=== PATIENT | female | born 1935 | race Caucasian/White ===

== ENCOUNTER 2018-12-25 06:15 | Day surgery (SDC) | payer OTHER ==
[~2018-12-25 06:15] MED LIST: B-12250 MCG; FENOFIBRATE160 MG; METFORMIN HCL500 MG; OMEPRAZOLE20 M1; SIMVASTATIN40 MG; SYNTHROID50 MCG
== END 2018-12-25 16:55 | disposition home or self-care (01) ==
LOC: CIR.AMB 06:15
DX: D05.11 Intraductal carcinoma in situ of right breast (principal)

== ENCOUNTER 2019-01-22 04:50 | Day surgery (SDC) | payer OTHER ==
[~2019-01-22] VITALS: Ht 157.5 cm; Wt 54.4 kg
[~2019-01-22 04:50] MED LIST changes: +ZOCOR40 MG PO
== END 2019-01-23 08:00 | disposition home or self-care (01) ==
LOC: CIR.AMB 04:50 → O/R 09:25 → CIR.AMB 09:25 → SURG 09:25 → O/R 15:40 → SURG 15:40 → CIR.AMB 01-23 08:00 → SURG 01-23 11:52
DX: D05.11 Intraductal carcinoma in situ of right breast (principal)

== ENCOUNTER 2019-03-06 15:12 | Emergency (ER) | payer OTHER ==
[~2019-03-06] VITALS: Ht 154.9 cm; Wt 54.4 kg
[2019-03-06] MEDS ORDERED: PROTONIX20 MG PO (15:50)
== END 2019-03-06 17:36 | disposition home or self-care (01) ==
LOC: ER 15:12
DX: R07.89 Other chest pain (principal)

== ENCOUNTER 2022-01-22 22:03 | Emergency (ER) | payer OTHER ==
[~2022-01-22] VITALS: Ht 154.9 cm; Wt 54.4 kg
[~2022-01-22 22:03] MED LIST changes: +PROTONIX20 MG PO
[2022-01-23] MEDS ORDERED: PEPCID AC20 MG PO (07:02)
[2022-01-23] MEDS ORDERED: CARAFATE1 GM PO (07:02)
== END 2022-01-23 07:44 | disposition home or self-care (01) ==
LOC: ER 22:03
DX: K29.70 Gastritis, unspecified, without bleeding (principal)

== ENCOUNTER 2023-02-12 11:37 | Emergency (ER) | payer OTHER ==
[~2023-02-12] VITALS: Ht 152.4 cm; Wt 53.1 kg
[~2023-02-12 11:37] MED LIST changes: +CARAFATE1 GM PO; +PEPCID AC20 MG PO
[2023-02-12] MEDS ORDERED: IBU800 MG PO (15:42)
== END 2023-02-12 15:52 | disposition home or self-care (01) ==
LOC: ER 11:37
DX: M25.512 Pain in left shoulder (principal); Z88.0 Allergy status to penicillin; Z85.3 Personal history of malignant neoplasm of breast; E11.9 Type 2 diabetes mellitus without complications; E78.00 Pure hypercholesterolemia, unspecified; E03.9 Hypothyroidism, unspecified

== ENCOUNTER 2023-08-02 20:29 | Emergency (ER) | payer OTHER ==
[~2023-08-02] VITALS: Ht 154.9 cm; Wt 54.4 kg
[~2023-08-02 20:29] MED LIST changes: +IBU800 MG PO
[2023-08-02] MEDS ORDERED: TRAMADOL HCL E100 M1 ×2 (20:40→20:41)
[2023-08-02] MEDS ORDERED: CLINDAMYCIN 1%-30 GM TP (20:40)
[2023-08-02] MEDS ORDERED: CLINDAMYCI75 MG/5 M1 (20:41)
[2023-08-02 23:42] LABS: ALT/SGPT 32 U/L (12-78); AST/SGOT 22 U/L (15-37); LDH 298 U/L (84-246); PHOSPHOKINASE CREATININE 252 U/L (26-192)
[2023-08-03] MEDS ORDERED: PRILOSEC OTC20 MG PO (00:14)
[2023-08-03] MEDS ORDERED: PEPCID AC10 MG PO (00:14)
== END 2023-08-03 00:22 | disposition home or self-care (01) ==
LOC: ER 20:29
PROVIDERS: Emergency Medicine
DX: K21.9 Gastro-esophageal reflux disease without esophagitis (principal); R07.89 Other chest pain; Z85.9 Personal history of malignant neoplasm, unspecified; Z88.0 Allergy status to penicillin; Z91.048 Other nonmedicinal substance allergy status

== ENCOUNTER 2023-10-18 21:17 | Emergency (ER) | payer OTHER ==
[~2023-10-18] VITALS: Ht 152.4 cm; Wt 52.2 kg
[~2023-10-18 21:17] MED LIST changes: +CLINDAMYCI75 MG/5 M1; +CLINDAMYCIN 1%-30 GM TP; +PEPCID AC10 MG PO; +PRILOSEC OTC20 MG PO; +TRAMADOL HCL E100 M1
[2023-10-18] MEDS ORDERED: SYNTHROID50 MCG PO (21:38)
[2023-10-18 23:12] LABS: HEMATOCRIT 36.9 % (36.0-45.00); HEMOGLOBIN 12.4 g/dL (12.0-15.00); MEAN CELL VOLUME 88.9 fL (80.00-100.00); MEAN CORPUSCULAR HEMOGLOBIN 29.9 pg (27.00-32.0); MEAN CORPUSCULAR HGB CONC 33.6 g/dl (32.0-36.0); PLATELET COUNT 243 K/uL (150-450); RED BLOOD COUNT 4.16 M/uL (4.00-6.00); RED CELL DISTRIBUTION WIDTH 13.5 % (11.5-14.5)
[2023-10-18 23:41] LABS: ALBUMIN 4.1 gm/dL (3.4-5.0); BILIRUBIN TOTAL 0.37 mg/dL (0.3-1.2); BILIRUBIN,CONJUGATED 0.13 mg/dL (0.0-0.2); BILIRUBIN,UNCONJUGATED 0.24 mg/dL (0.0-0.6); CREATININE SERUM 0.63 mg/dL (0.55-1.02); GFR 88.98; GLOBULINA 4.3 G/DL (2.4-3.5); POTASSIUM 4.27 mEq/L (3.5-5.1); TOTAL PROTEIN 8.4 gm/dL (6.4-8.2)
[2023-10-18] MEDS ORDERED: PEPCID AC20 MG PO (23:59)
[2023-10-18] MEDS ORDERED: LEVSIN/SL0.125 MG SL (23:59)
== END 2023-10-19 00:03 | disposition home or self-care (01) ==
LOC: ER 21:17
PROVIDERS: General Practice
DX: K29.70 Gastritis, unspecified, without bleeding (principal); Z88.0 Allergy status to penicillin; Z91.018 Allergy to other foods; E03.9 Hypothyroidism, unspecified; Z20.822 Contact with and (suspected) exposure to COVID-19
CPT/HCPCS: 36415; 96365; 99284; J2405

== ENCOUNTER 2023-10-30 19:03 | Emergency (ER) | payer OTHER ==
[~2023-10-30] VITALS: Ht 152.4 cm; Wt 54.4 kg
[~2023-10-30 19:03] MED LIST changes: +LEVSIN/SL0.125 MG SL; +SYNTHROID50 MCG PO
[2023-10-31 01:31] LABS: HEMATOCRIT 41.6 % (36.0-45.00); MEAN CELL VOLUME 89.3 fL (80.00-100.00); MEAN CORPUSCULAR HEMOGLOBIN 30.1 pg (27.00-32.0); MEAN CORPUSCULAR HGB CONC 33.7 g/dl (32.0-36.0); PLATELET COUNT 290 K/uL (150-450); RED BLOOD COUNT 4.65 M/uL (4.00-6.00); RED CELL DISTRIBUTION WIDTH 13.3 % (11.5-14.5)
[2023-10-31 01:49] LABS: CALCIUM 10.5 mg/dL (8.5-10.1); CREATININE SERUM 0.71 mg/dL (0.55-1.02); GFR 77.51; POTASSIUM 4.3 mEq/L (3.5-5.1)
[2023-10-31] MEDS ORDERED: PROTONIX40 MG PO (06:09)
[2023-10-31] MEDS ORDERED: PEPCID40 MG PO (06:09)
== END 2023-10-31 06:19 ==
LOC: ER 19:03
PROVIDERS: General Practice
DX: K21.9 Gastro-esophageal reflux disease without esophagitis (principal); E03.9 Hypothyroidism, unspecified; Z91.018 Allergy to other foods; Z88.0 Allergy status to penicillin
CPT/HCPCS: 36415; 93005; 96365; 96366; 99284; J2405; J3490; J7030

== ENCOUNTER 2024-07-05 09:41 | Emergency (ER) | payer OTHER ==
[~2024-07-05] VITALS: Ht 147.3 cm; Wt 54.9 kg
[~2024-07-05 09:41] MED LIST changes: +PEPCID40 MG PO; +PROTONIX40 MG PO
[2024-07-05 10:53] LABS: HEMOGLOBIN 12.2 g/dL (12.0-15.00); MEAN CORPUSCULAR HEMOGLOBIN 31.1 pg (27.00-32.0); MEAN CORPUSCULAR HGB CONC 33.8 g/dl (32.0-36.0); PLATELET COUNT 227 K/uL (150-450); RED BLOOD COUNT 3.91 M/uL (4.00-6.00); RED CELL DISTRIBUTION WIDTH 12.7 % (11.5-14.5)
[2024-07-05 11:25] LABS: CALCIUM 9.9 mg/dL (8.5-10.1); CREATININE SERUM 0.73 mg/dL (0.55-1.02); GFR 75.06; POTASSIUM 4.5 mEq/L (3.5-5.1)
== END 2024-07-05 12:41 | disposition home or self-care (01) ==
LOC: ER 09:42
PROVIDERS: General Practice
DX: R53.81 Other malaise (principal); R06.02 Shortness of breath; Z20.822 Contact with and (suspected) exposure to COVID-19; I10 Essential (primary) hypertension; Z88.0 Allergy status to penicillin; Z91.018 Allergy to other foods

== ENCOUNTER 2024-07-24 11:36 | Emergency (ER) | payer OTHER ==
[~2024-07-24] VITALS: Ht 144.8 cm; Wt 68.0 kg
[2024-07-24] MEDS ORDERED: COZAAR50 MG PO (11:54)
[2024-07-24 13:10] LABS: HEMATOCRIT 32.4 % (36.0-45.00); HEMOGLOBIN 10.9 g/dL (12.0-15.00); MEAN CELL VOLUME 91.1 fL (80.00-100.00); MEAN CORPUSCULAR HEMOGLOBIN 30.8 pg (27.00-32.0); MEAN CORPUSCULAR HGB CONC 33.8 g/dl (32.0-36.0); PLATELET COUNT 147 K/uL (150-450); RED BLOOD COUNT 3.56 M/uL (4.00-6.00); RED CELL DISTRIBUTION WIDTH 12.9 % (11.5-14.5)
[2024-07-24 14:52] LABS: URINE APPEARANCE Clear; URINE BILIRRUBIN Negative (NEGATIVE); URINE BLOOD Trace; URINE COLOR Yellow; URINE GLUCOSE Negative (NEGATIVE); URINE KETONE Trace (NEGATIVE); URINE LEUKOCYTE Small; URINE NITRATE Negative; URINE PROTEIN 30 (NEGATIVE); URINE UROBILINOGEN 0.2 E.U./dl
[2024-07-24 14:57] LABS: URINE BACTERIA 211.6 uL (0.0-1933); URINE RBC 12.8 uL (0.0-20.8)
== END 2024-07-24 15:56 | disposition home or self-care (01) ==
LOC: ER 11:36
PROVIDERS: Emergency Medicine
DX: R50.9 Fever, unspecified (principal); Z88.0 Allergy status to penicillin; Z20.822 Contact with and (suspected) exposure to COVID-19